=== PATIENT | male | born 2000 | race African-American/Black ===

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

== ENCOUNTER 2023-09-01 02:56 | Emergency (ER) | payer MEDICARE, OTHER ==
[2023-09-01 03:19] VITALS: BMI 32.8
[2023-09-01] MEDS ORDERED: KETOROLAC TROMETHAMINE 15 MG/ML VIAL IVPUSH ONE (03:38)
[2023-09-01] MEDS ORDERED: KETOROLAC TROMETHAMINE 15 MG/ML VIAL ONE (03:47)
[2023-09-01 03:56] LABS: BASO % 0.3 % (0-2.0); EOS % 0.2 % (0-4.5); HEMATOCRIT 39.6 % (35.4-49); HEMOGLOBIN 13.2 GM/dL (11.7-16.9); LYMPH % 7.9 % (8-40); MCH 22.9 pg (25.7-33.7); MCHC 33.3 g/dl (32.0-35.9); MEAN CELL VOLUME 68.9 fl (80-96); MEAN PLT VOLUME 8.6 fl (7.5-11.1); MONO % 16.3 % (3.8-10.2); NEUT % 75.3 % (42.8-82.8); PLATELET COUNT 208 10^3/uL (134-434); RBC 5.75 M/mm3 (4.00-5.60); RDW 14.5 % (11.9-15.9); WHITE BLOOD COUNT 9.6 K/mm3 (4.0-10.0)
[2023-09-01 04:15] LABS: POTASSIUM 3.7 mmol/L (3.5-5.1)
[2023-09-01 04:16] LABS: ALBUMIN 4.1 g/dl (3.4-5.0); CALCIUM 8.8 mg/dL (8.5-10.1)
[2023-09-01 04:17] LABS: BLOOD UREA NITROGEN 13.6 mg/dL (7-18)
[2023-09-01 04:22] LABS: BILIRUBIN,TOTAL 0.3 mg/dL (0.2-1)
[2023-09-01 04:57] VITALS: BP 132/86; PULSE 110; RESP 19; TEMP 98.8
== END 2023-09-01 05:02 | disposition home or self-care (01) ==
LOC: JER 02:56
PROC: 3E0333Z Introduction of Anti-inflammatory into Peripheral Vein, Percutaneous Approach (ICD-10-PCS; principal; 2023-09-01)
DX: R07.81 Pleurodynia (principal); R50.9 Fever, unspecified; R00.0 Tachycardia, unspecified; U07.1 COVID-19
CPT/HCPCS: 0241U-QW; 36415; 71046-TC-FY; 80053; 84484; 85025; 85379; 93005; 93010; 99285-25

== ENCOUNTER 2024-04-06 15:15 | Emergency (ER) | payer SELFPAY ==
[2024-04-06 15:53] VITALS: BP 123/82; PULSE 89; RESP 20; TEMP 98.7; BMI 31.6
== END 2024-04-06 16:46 | disposition home or self-care (01) ==
LOC: JER 15:15
DX: R09.81 Nasal congestion (principal); R05.9 Cough, unspecified; R51.9 Headache, unspecified; J30.2 Other seasonal allergic rhinitis; Z20.828 Contact with and (suspected) exposure to other viral communicable diseases
CPT/HCPCS: 0241U-QW; 71046-TC-FY; 99284-25

== ENCOUNTER 2024-08-10 18:33 | Observation (INO) | payer OTHER ==
[2024-08-10] MEDS: LACTATED RINGERS SOLUTION 1000 ML INFUS.BAG IV ONE (20:07)
[2024-08-10 20:55] LABS: BASO % 0.4 % (0-2.0); EOS % 2.3 % (0-4.5); HEMATOCRIT 41.1 % (35.4-49); HEMOGLOBIN 13.2 GM/dL (11.7-16.9); LYMPH % 21.9 % (8-40); MCH 22.3 pg (25.7-33.7); MEAN CELL VOLUME 69.6 fl (80-96); MEAN PLT VOLUME 9.1 fl (7.5-11.1); MONO % 7.9 % (3.8-10.2); NEUT % 67.5 % (42.8-82.8); PLATELET COUNT 270 10^3/uL (134-434); RBC 5.91 M/mm3 (4.00-5.60); RDW 15.2 % (11.9-15.9); WHITE BLOOD COUNT 7.3 K/mm3 (4.0-10.0)
[2024-08-10 21:04] LABS: INR 1.02 (0.83-1.09); PROTHROMBIN TIME (PATIENT) 11.7 SEC (9.7-13.0)
[2024-08-10 21:05] LABS: POTASSIUM 3.7 mmol/L (3.5-5.1)
[2024-08-10 21:07] LABS: ACTIVATED PTT 37.3 SECONDS (25.2-36.5); ALBUMIN 4.1 g/dl (3.4-5.0); CALCIUM 9.6 mg/dL (8.5-10.1)
[2024-08-10 21:08] LABS: BLOOD UREA NITROGEN 12.2 mg/dL (7-18)
[2024-08-10 21:12] LABS: BILIRUBIN,TOTAL 0.4 mg/dL (0.2-1)
[2024-08-10] MEDS ORDERED: methylPREDNISolone NA SUCC 40 MG/1 ML VIAL ONE (23:10)
[2024-08-10] MEDS: methylPREDNISolone NA SUCC 40 MG/1 ML VIAL IVPUSH ONE (23:24)
[2024-08-11] MEDS ORDERED: ONDANSETRON 4 MG/2 ML VIAL IM PRN (01:06)
[2024-08-11] MEDS: LACTATED RINGERS SOLUTION 1,000 ML/1,000 ML INFUS.BAG IV SCH (01:25)
[2024-08-11 02:13] VITALS: BMI 32.0
[2024-08-11] MEDS ORDERED: WITCH HAZEL 50% (TUCKS) 40 PAD/JAR PAD TP PRN (02:39)
[2024-08-11] MEDS ORDERED: methylPREDNISolone NA SUCC 40 MG/1 ML VIAL IVPUSH SCH (03:00)
[2024-08-11] MEDS: methylPREDNISolone NA SUCC 40 MG/1 ML VIAL IVPUSH SCH (09:30)
[2024-08-11 10:11] LABS: BASO % 0.1 % (0-2.0); HEMATOCRIT 38.8 % (35.4-49); HEMOGLOBIN 12.5 GM/dL (11.7-16.9); LYMPH % 10.4 % (8-40); MCH 22.3 pg (25.7-33.7); MCHC 32.2 g/dl (32.0-35.9); MEAN CELL VOLUME 69.4 fl (80-96); MEAN PLT VOLUME 8.6 fl (7.5-11.1); MONO % 3.7 % (3.8-10.2); NEUT % 85.8 % (42.8-82.8); PLATELET COUNT 250 10^3/uL (134-434); RBC 5.59 M/mm3 (4.00-5.60); RDW 15.2 % (11.9-15.9); WHITE BLOOD COUNT 8.9 K/mm3 (4.0-10.0)
[2024-08-11 11:14] LABS: CHLORIDE 105 mmol/L (98-107); POTASSIUM 3.6 mmol/L (3.5-5.1); SODIUM 137 mmol/L (136-145)
[2024-08-11 11:22] LABS: SGOT/AST 19 U/L (15-37); SGPT/ALT 41 U/L (13-61)
[2024-08-11 11:24] LABS: ALBUMIN 3.6 g/dl (3.4-5.0); ANION GAP 7 mmol/L (4-13); BILIRUBIN,TOTAL 0.4 mg/dL (0.2-1); BLOOD UREA NITROGEN 10.5 mg/dL (7-18); CO2 26 mmol/L (21-32); TOT PROT 7.2 g/dl (6.4-8.2)
[2024-08-11 11:25] LABS: ALK PHOS 98 U/L (45-117); MAGNESIUM 1.7 mg/dL (1.8-2.4)
[2024-08-11 11:27] LABS: CREATININE 0.9 mg/dL (0.55-1.3); PHOSPHOROUS 4.6 mg/dL (2.5-4.9)
[2024-08-11 11:30] LABS: GLUCOSE,RANDOM 160 mg/dL (74-106)
[2024-08-11 19:34] VITALS: RESP 20
[2024-08-12 08:49] LABS: BASO % 0.1 % (0-2.0); HEMATOCRIT 40.5 % (35.4-49); HEMOGLOBIN 12.8 GM/dL (11.7-16.9); MCH 22.3 pg (25.7-33.7); MCHC 31.6 g/dl (32.0-35.9); MEAN CELL VOLUME 70.4 fl (80-96); MONO % 3.4 % (3.8-10.2); NEUT % 87.5 % (42.8-82.8); PLATELET COUNT 262 10^3/uL (134-434); RBC 5.75 M/mm3 (4.00-5.60); RDW 14.9 % (11.9-15.9); WHITE BLOOD COUNT 12.4 K/mm3 (4.0-10.0)
[2024-08-12 09:00] LABS: POTASSIUM 3.9 mmol/L (3.5-5.1)
[2024-08-12 09:08] LABS: ALBUMIN 3.8 g/dl (3.4-5.0); BLOOD UREA NITROGEN 9.3 mg/dL (7-18); CALCIUM 10.1 mg/dL (8.5-10.1); MAGNESIUM 1.8 mg/dL (1.8-2.4)
[2024-08-12 09:12] LABS: CREATININE 0.9 mg/dL (0.55-1.3)
[2024-08-12 09:13] LABS: BILIRUBIN,TOTAL 0.4 mg/dL (0.2-1); TOT PROT 7.7 g/dl (6.4-8.2)
[2024-08-12] MEDS: predniSONE 20 MG TABLET (UD) PO SCH (09:30)
[2024-08-12 10:55] VITALS: BP 123/77; PULSE 86; TEMP 98.4
== END 2024-08-12 13:08 | disposition home or self-care (01) ==
LOC: JER 18:33 → JERBED 23:35 → J8W 08-11 00:43
PROVIDERS: ADMIT Internal Medicine; ATTEND Nurse Practitioner Family
PROC: 3E033GC Introduction of Other Therapeutic Substance into Peripheral Vein, Percutaneous Approach (ICD-10-PCS; principal; 2024-08-10)
PROC: 3E0337Z Introduction of Electrolytic and Water Balance Substance into Peripheral Vein, Percutaneous Approach (ICD-10-PCS; 2024-08-10)
DX: K50.919 Crohn's disease, unspecified, with unspecified complications (principal); K62.5 Hemorrhage of anus and rectum; Z91.148 Patient's other noncompliance with medication regimen for other reason; Z29.9 Encounter for prophylactic measures, unspecified
CPT/HCPCS: 36415; 74177-TC; 80053; 82272; 83735; 84100; 85025; 85610; 85730; 86140; 86850; 86900; 86901; 96361; 96374; 96376; 99285-25; G0378